=== PATIENT | male | born 1965 | race Caucasian/White ===

== ENCOUNTER 2020-11-21 01:07 | Day surgery (SDC) | payer BC, SELFPAY ==
[2020-11-07 09:37] VITALS: BMI 32.1
--- NOTE | 2020-11-21 08:33 | WPDANESEPPF ---
Anes - Initial Pre Proc Eval Procedure: Operation Date: 11/21/20 10:30 Proposed Procedures p Screening Colonoscopy - Terence Hester MD Date/Time: 11/21/20 08:33 Surgeon: Terence Hester MD Pre Op Diagnosis: neoplasm screening Patient Data Age: 55 Gender: M Height: 1.7 m Weight: 93 kg Allergies Allergy/AdvReac Type Severity Reaction Status Date / Time No Known Allergies Allergy Mild Verified 11/21/20 09:37 Home Medications Medication Instructions Recorded Confirmed Type No Home Medications 11/07/20 11/07/20 History Patient hx anesthesia problems: none Family hx anesthesia problems: none PMFSH Past Medical History Medical History Factor V Leiden Pulmonary embolism Family History Family History Father Hypertension Social History Social History Living arrangements: with family Spiritual care concerns: No Anes - Eval Final PreProcedure Day of Procedure 11/21/20 08:33 Patient weight: overweight Heart: regular rate and rhythm Lungs: clear to auscultation and normal air movement Airway: Mallampati scale class II Neurological: alert and oriented Last oral intake: >/= 8 hours ASA classification: II Emergent: no Anesthetic plan: proceed Anesthesia type and monitoring: general GIVS Informed Consent: The patient's anesthetic plan and its attendant risks and benefits were discussed with the patient/family/POA. Questions were solicited and answers provided to the satisfaction of the patient/family/POA.
[2020-11-21 09:37] VITALS: BMI 30.3
[2020-11-21 09:38] VITALS: BP 90/64; PULSE 67; RESP 18; TEMP 35.7; O2SAT 100
--- NOTE | 2020-11-21 09:41 | PM.HPGS ---
History of Present Illness History of Present Illness Consent: Risks, benefits, and alternatives have been discussed and questions answered. Patient agrees to proceed with procedure. Chief complaint: neoplasm screening Narrative: Yonas Ramsey is a 55 year old male referred for colon cancer screening. Review of Systems Review of Systems: All systems reviewed & are unremarkable except as noted in HPI and below PMFSH Past Medical History Medical History Factor V Leiden Pulmonary embolism Family History Family History Father Hypertension Social History Social History Living arrangements: with family Spiritual care concerns: No Meds Home Medications and Allergies Home Medications Medication Instructions Recorded Confirmed Type No Home Medications 11/07/20 11/07/20 History Allergies Allergy/AdvReac Type Severity Reaction Status Date / Time No Known Allergies Allergy Mild Verified 11/21/20 09:37 Vital Signs Vital Signs - 24 hr 11/21/20 09:38 Temperature 35.7 C L Pulse Rate 67 Respiratory Rate 18 Blood Pressure 90/64 L Pulse Oximetry 100 Exam Resp: Auscultation: clear to auscultation bilaterally Cardio: Rate: regular rate Rhythm: regular rhythm GI: GI Palp: Yes Soft to palpation and No Tenderness to palpation present (GI) Assessment and Plan Assessment and plan (1) Colon cancer screening: Code(s): Z12.11 - Encounter for screening for malignant neoplasm of colon Status: Acute Assessment and Plan: Colonoscopy with possible biopsy or polypectomy or cautery or injection of substances.
[2020-11-21] MEDS: LACTATED RINGERS 1,000 ML 150 ML IV CONT (09:47)
[2020-11-21 10:35] VITALS: BP 84/55; PULSE 92; RESP 25; O2SAT 93
[2020-11-21 10:45] VITALS: BP 102/69; PULSE 82; RESP 16; O2SAT 93
[2020-11-21 10:55] VITALS: BP 104/65; PULSE 79; RESP 19; O2SAT 98
== END 2020-11-21 11:08 | disposition home or self-care (01) ==
PROVIDERS: PCP Internal Medicine; Visit Provider Internal Medicine Gastroenterology
PROC: 0DJD8ZZ Inspection of Lower Intestinal Tract, Via Natural or Artificial Opening Endoscopic (ICD-10-PCS; CPT 45378; principal; 2020-11-21 10:30)
DX: Z12.11 Encounter for screening for malignant neoplasm of colon (principal); K57.30 Diverticulosis of large intestine without perforation or abscess without bleeding; D68.51 Activated protein C resistance; Z86.711 Personal history of pulmonary embolism
CPT/HCPCS: 45378; J2704; J7120